=== PATIENT | female | born 1965 ===

== ENCOUNTER 2017-10-27 08:18 | Outpatient (CLI) | payer OTHER ==
[~2017-10-27] VITALS: Ht 160 cm; Wt 68.0 kg
== END 2017-10-27 08:35 | disposition home or self-care (01) ==
LOC: OFIC 805 08:18
DX: E04.1 Nontoxic single thyroid nodule (principal); H92.02 Otalgia, left ear; M26.69 Other specified disorders of temporomandibular joint